=== PATIENT | male | born 1940 | race Two or more races ===

== ENCOUNTER → 2022-12-08 | Outpatient (CLI) | payer MEDICARE ==
[2022-12-08 14:37] LABS: BASOPHILS ABSOLUTE AUTO 0.06 K/mm3 (0.00-0.23); BASOPHILS PERCENT AUTO 1 % (0-2); EOSINOPHILS ABSOLUTE AUTO 0.55 K/mm3 (0.00-0.68); EOSINOPHILS PERCENT AUTO 6 % (0-6); Hemoglobin 14.2 g/dL (13.5-17.5); IMMATURE GRAN ABSOLUTE AUTO 0.02 K/mm3 (0.00-0.10); IMMATURE GRAN PERCENT AUTO 0 % (0-1); LYMPHOCYTES ABSOLUTE AUTO 1.42 K/mm3 (0.84-5.20); LYMPHOCYTES PERCENT AUTO 15 % (21-46); MONOCYTES ABSOLUTE AUTO 0.57 K/mm3 (0.16-1.47); MONOCYTES PERCENT AUTO 6 % (4-13); Mean Corpuscular HGB 31.1 pg (26.0-34.0); Mean Corpuscular HGB Conc 33.8 g/dL (31.5-36.5); Mean Corpuscular Volume 92 fL (80-100); Mean Platelet Volume 10.8 fL (9.1-12.4); NEUTROPHILS PERCENT AUTO 72 % (41-73); Platelet Count 245 K/mm3 (150-400); RDW Coefficient Variation 12.5 % (11.7-14.2); RDW Standard Deviation 41.2 fL (35.1-46.3); Red Blood Cell Count 4.57 M/mm3 (4.30-5.90); White Blood Cell Count 9.22 K/mm3 (4.00-11.30)
[2022-12-08 16:16] LABS: Bun/Creatinine Ratio 16.8 (12.0-20.0); Calcium, Blood 8.4 mg/dL (8.5-10.1); Creatinine, Blood 0.89 mg/dL (0.60-1.20)
[2022-12-09 07:09] LABS: HEMOGLOBIN A1C 6.9 % (4.8-5.6)
== END | disposition home or self-care (01) ==
LOC: LAB 12:41 → LAB SHORT 12:41
PROVIDERS: Internal Medicine
DX: E11.9 Type 2 diabetes mellitus without complications (principal); I10 Essential (primary) hypertension
CPT/HCPCS: 80048; 83036; 85025

== ENCOUNTER → 2023-01-21 | Outpatient (CLI) | payer MEDICARE | LOC: LAB SHORT 15:18 → LAB 15:18 | DX: E11.9 Type 2 diabetes mellitus without complications (principal) | CPT/HCPCS: 83036 ==

== ENCOUNTER → 2023-05-11 | Outpatient (CLI) | payer MEDICARE ==
[2023-05-11 11:37] LABS: BASOPHILS ABSOLUTE AUTO 0.07 K/mm3 (0.00-0.23); BASOPHILS PERCENT AUTO 1 % (0-2); EOSINOPHILS ABSOLUTE AUTO 0.46 K/mm3 (0.00-0.68); EOSINOPHILS PERCENT AUTO 6 % (0-6); Hematocrit 44.1 % (37.0-53.0); Hemoglobin 14.6 g/dL (13.5-17.5); IMMATURE GRAN ABSOLUTE AUTO 0.02 K/mm3 (0.00-0.10); IMMATURE GRAN PERCENT AUTO 0 % (0-1); LYMPHOCYTES ABSOLUTE AUTO 1.45 K/mm3 (0.84-5.20); LYMPHOCYTES PERCENT AUTO 18 % (21-46); MONOCYTES ABSOLUTE AUTO 0.55 K/mm3 (0.16-1.47); MONOCYTES PERCENT AUTO 7 % (4-13); Mean Corpuscular HGB 30.5 pg (26.0-34.0); Mean Corpuscular HGB Conc 33.1 g/dL (31.5-36.5); Mean Corpuscular Volume 92 fL (80-100); Mean Platelet Volume 10.4 fL (9.1-12.4); NEUTROPHILS PERCENT AUTO 69 % (41-73); Platelet Count 299 K/mm3 (150-400); RDW Coefficient Variation 12.5 % (11.7-14.2); RDW Standard Deviation 42.5 fL (35.1-46.3); Red Blood Cell Count 4.79 M/mm3 (4.30-5.90); White Blood Cell Count 8.25 K/mm3 (4.00-11.30)
[2023-05-11 12:17] LABS: Anion Gap 5 mmol/L (6-16); Blood Urea Nitrogen 27 mg/dL (8-24); Bun/Creatinine Ratio 31.7 (12.0-20.0); CHOL/HDL RATIO 4.8; CO2, Blood 29 mmol/L (21-32); Calcium, Blood 8.9 mg/dL (8.5-10.1); Chloride, Blood 107 mmol/L (98-108); Cholesterol 162 mg/dL (50-200); Creatinine, Blood 0.85 mg/dL (0.60-1.20); Glomerular Filtration Rate 87 (60-); Glucose, Blood 128 mg/dL (70-99); HDL Cholesterol 34 mg/dL (>39); LDL/HDL RATIO 3.4; Low Density Lipoprotein Chol 116 mg/dL (0-110); Potassium, Blood 3.9 mmol/L (3.5-5.5); Sodium, Blood 141 mmol/L (136-145); Triglycerides 61 mg/dL (30-160); Very Low Density Lipoprot Chol 12 mg/dL (6-32)
== END ==
LOC: LAB SHORT 10:40 → LAB 10:40
PROVIDERS: Internal Medicine
DX: E11.9 Type 2 diabetes mellitus without complications (principal); I25.10 Atherosclerotic heart disease of native coronary artery without angina pectoris; I10 Essential (primary) hypertension
CPT/HCPCS: 80048; 80061; 83036; 85025

== ENCOUNTER → 2023-06-04 | Outpatient (CLI) | payer MEDICARE ==
[2023-06-06 11:08] LABS: CALCIUM, SERUM 9.1 mg/dL (8.6-10.2); CREATININE, SERUM 0.95 mg/dL (0.76-1.27); POTASSIUM, SERUM 5.1 mmol/L (3.5-5.2)
== END ==
LOC: LAB 11:38 → LAB SHORT 11:38
PROVIDERS: Internal Medicine
DX: R60.9 Edema, unspecified (principal)
CPT/HCPCS: 80048

== ENCOUNTER → 2023-06-08 | Outpatient (CLI) | payer OTHER | END | disposition home or self-care (01) | LOC: LAB 18:18 → LAB SHORT 18:18 | DX: R60.9 Edema, unspecified (principal) | CPT/HCPCS: 83880 ==

== ENCOUNTER → 2024-05-18 | Outpatient (CLI) | payer OTHER ==
[2024-05-18 10:50] LABS: BASOPHILS ABSOLUTE AUTO 0.07 K/mm3 (0.00-0.23); BASOPHILS PERCENT AUTO 1 % (0-2); EOSINOPHILS ABSOLUTE AUTO 0.51 K/mm3 (0.00-0.68); EOSINOPHILS PERCENT AUTO 6 % (0-6); Hematocrit 46.9 % (37.0-53.0); Hemoglobin 15.5 g/dL (13.5-17.5); IMMATURE GRAN ABSOLUTE AUTO 0.03 K/mm3 (0.00-0.10); IMMATURE GRAN PERCENT AUTO 0 % (0-1); LYMPHOCYTES ABSOLUTE AUTO 1.42 K/mm3 (0.84-5.20); LYMPHOCYTES PERCENT AUTO 15 % (21-46); MONOCYTES ABSOLUTE AUTO 0.44 K/mm3 (0.16-1.47); MONOCYTES PERCENT AUTO 5 % (4-13); Mean Corpuscular HGB 30.3 pg (26.0-34.0); Mean Corpuscular Volume 92 fL (80-100); Mean Platelet Volume 11.5 fL (9.1-12.4); NEUTROPHILS ABSOLUTE AUTO 6.75 K/mm3 (1.96-9.15); NEUTROPHILS PERCENT AUTO 73 % (41-73); Platelet Count 215 K/mm3 (150-400); RDW Standard Deviation 40.7 fL (35.1-46.3); Red Blood Cell Count 5.11 M/mm3 (4.30-5.90); White Blood Cell Count 9.22 K/mm3 (4.00-11.30)
[2024-05-18 11:25] LABS: Thyroid Stimulating Hormone 2.04 uIU/mL (0.360-4.800)
[2024-05-18 11:26] LABS: Albumin, Blood 3.4 g/dL (3.4-5.0); Bilirubin, Total 0.6 mg/dL (0.1-1.0); Bun/Creatinine Ratio 20.8 (12.0-20.0); Calcium, Blood 8.7 mg/dL (8.5-10.1); Creatinine, Blood 1.01 mg/dL (0.60-1.20); Globulin, Blood 3.4 g/dL (2.2-4.0); Total Protein, Blood 6.8 g/dL (6.4-8.2)
== END | disposition home or self-care (01) ==
LOC: LAB SHORT 08:50 → LAB 08:50
PROVIDERS: Internal Medicine
DX: E11.9 Type 2 diabetes mellitus without complications (principal); I10 Essential (primary) hypertension; F03.90 Unspecified dementia, unspecified severity, without behavioral disturbance, psychotic disturbance, mood disturbance, and anxiety; R00.1 Bradycardia, unspecified
CPT/HCPCS: 80053; 83036; 84443; 85025

== ENCOUNTER → 2024-09-05 | Outpatient (CLI) | payer OTHER ==
[2024-09-05 17:02] LABS: Appearance, Urine Clear (Clear); Bilirubin, Urine Neg (Neg); Blood, Urine Neg (Neg); Color, Urine Yellow (P-Yellow); Glucose Qualitative, Urine 3+ (Neg); Ketones, Urine Neg (Neg); Leukocyte Esterase, Urine 1+ (Neg); Nitrite, Urine Neg (Neg); Protein, Urine Neg (Neg); Urobilinogen, Urine NORM (Normal)
[2024-09-05 17:13] LABS: Red Blood Cells, Urine 0-2 /hpf (0-2)
[2024-09-05 17:15] LABS: Bacteria Few /hpf; Squamous Epithelial Cells Not Seen /hpf (Few)
== END ==
LOC: LAB SHORT 14:00 → LAB 14:00
PROVIDERS: Internal Medicine
DX: N39.0 Urinary tract infection, site not specified (principal)
CPT/HCPCS: 81001; 87086